=== PATIENT | female | born 1990 | race African-American/Black ===

== ENCOUNTER 2021-01-01 08:33 | Emergency (ER) | payer OTHER ==
[~2021-01-01] VITALS: Ht 170.2 cm; Wt 74.0 kg
[2021-01-01] MEDS ORDERED: IV NORMAL SALINE 1,000ML 1,000 ML IV ONE (08:45)
--- NOTE | 2021-01-01 08:53 | PHYS DOC ---
Adult General HPI HPI Patient is a 30-year-old female presenting via EMS for dizziness. Reports she was taking a diagnostic AC FT with the when she started getting lightheaded and dizzy during the 2-minute plank test. Reports she lowered herself to the ground and just stayed there because she was lightheaded and "felt like I went too hard". Reports history of G6PD; otherwise, no other pertinent medical issues. No history of passing out during physical exertion, no family history of early cardiac disease or other abnormalities. No fever, recent illness, sick contacts, travel or current chest pain, shortness of breath, abdominal pain, urinary symptoms or changes in motor or sensory or neuro function Review of Systems Review of Systems Fourteen body systems of review of systems have been reviewed. See HPI for pertinent positives and negative responses, other marie all other systems are negative, non-pertinent or non-contributory Physical Exam Physical Exam Constitutional: Well developed, well nourished, no acute distress, non-toxic appearance. HENT: Normocephalic, atraumatic, bilateral external ears normal, oropharynx dry, no oral exudates, nose normal. Eyes: PERRLA, EOMI, conjunctiva normal, no discharge. Neck: Normal range of motion, no tenderness, supple, no stridor. Cardiovascular: Heart rate regular, sinus rhythm, no murmurs rubs or gallops Lungs & Thorax: Bilateral breath sounds clear to auscultation Abdomen: Bowel sounds normal, soft, no tenderness, no masses, no pulsatile masses. Nonsurgical abdomen, no peritoneal signs Skin: Warm, dry, no erythema, no rash. Back: No tenderness, no CVA tenderness. Extremities: No tenderness, no cyanosis, no clubbing, ROM intact, no edema. Neurologic: Alert and oriented X 3, cranial nerves II through XII intact, normal motor & sensory function, no focal deficits noted. Psychologic: Affect normal, judgement normal, mood normal. Current Patient Data Vital Signs Vital Signs Date Time Temp Pulse Resp B/P (MAP) Pulse Ox O2 Delivery O2 Flow Rate FiO2 01/01/21 08:40 98.4 87 18 112/74 (87) 100 Room Air Vital Signs Date Time Temp Pulse Resp B/P (MAP) Pulse Ox O2 Delivery O2 Flow Rate FiO2 01/01/21 09:12 90 18 147/53 (84) 100 Room Air 01/01/21 08:40 98.4 Lab Results Laboratory Tests Test 01/01/21 08:50 01/01/21 09:04 01/01/21 09:18 White Blood Count 6.4 x10^3/uL Red Blood Count 3.72 x10^6/uL Hemoglobin 11.7 g/dL Hematocrit 35.9 % Mean Corpuscular Volume 96 fL Mean Corpuscular Hemoglobin 32 pg Mean Corpuscular Hemoglobin Concent 33 g/dL Red Cell Distribution Width 12.8 % Platelet Count 254 x10^3/uL Neutrophils (%) (Auto) 76 % Lymphocytes (%) (Auto) 15 % Monocytes (%) (Auto) 8 % Eosinophils (%) (Auto) 0 % Basophils (%) (Auto) 1 % Neutrophils # (Auto) 4.8 x10^3uL Lymphocytes # (Auto) 0.9 x10^3/uL Monocytes # (Auto) 0.5 x10^3/uL Eosinophils # (Auto) 0.0 x10^3/uL Basophils # (Auto) 0.0 x10^3/uL Sodium Level 143 mmol/L Potassium Level 4.1 mmol/L Chloride Level 106 mmol/L Carbon Dioxide Level 24 mmol/L Anion Gap 13 Blood Urea Nitrogen 12 mg/dL Creatinine 1.0 mg/dL Estimated GFR (Cockcroft-Gault) 64.7 Glucose Level 99 mg/dL Calcium Level 9.1 mg/dL Creatine Kinase 106 U/L Urine Collection Type Unknown Urine Color Sara Urine Clarity Hazy Urine pH 5.5 Urine Specific [place] >=1.030 Urine Protein 100 mg/dl Urine Glucose (UA) Neg mg/dL Urine Ketones (Stick) 15 mg/dL Urine Blood Neg Urine Nitrite Neg Urine Bilirubin Mod Urine Urobilinogen Dipstick 1.0 mg/dL Urine Leukocyte Esterase Neg Urine RBC 0 /HPF Urine WBC 0 /HPF Urine Squamous Epithelial Cells Few /LPF Urine Bacteria Few /HPF Urine Mucus Slight /LPF Bedside Urine HCG, Qualitative hcg negative Current Medications Medications (Trade) Dose Ordered Sig/Eva Route PRN Reason Start Time Stop Time Status Last Admin Dose Admin Sodium Chloride 1,000 ml @ 1,000 mls/hr 1X ONCE IV 01/01/21 08:45 01/01/21 09:44 DC 01/01/21 08:52 EKG EKG EKG ordered and interpreted by myself at 0852 hrs. as sinus rhythm at 84 bpm, unremarkable intervals, no axis deviation, no obvious ischemic findings, no STEMI Radiology/Procedures Radiology/Procedures [] Heart Score C/O Chest Pain: No HEART Score for Chest Pain: HEART Score for Chest Pain Response (Comments) Value History Slighlty/Non-Suspicious 0 ECG Normal 0 Age < 45 0 Risk Factors No Risk Factors 0 Total 0 Risk Factors: Risk Factors: DM, Current or recent (<one month) smoker, HTN, HLP, family history of CAD, obesity. Risk Scores: Risk Factors: DM, Current or recent (<one month) smoker, HTN, HLP, family history of CAD, obesity. Course & Med Decision Making Course & Med Decision Making ABCs unremarkable. I disclosed entirety of ER findings and discussed most likely diagnosis of dehydration versus dizziness from physical exertion. I discussed there were no emergent or surgical findings. I disclose this is low likelihood cardiac or other life-threatening process. Patient asymptomatic on arrival, tolerated IV fluid rehydration and remained asymptomatic throughout ER visit. She was ambulatory and felt at baseline self prior to requesting discharge home. As such, I stressed need for close outpatient follow-up to review today's ER visit. Strict return precautions were also discussed at length with good understanding by patient. Patient voiced understanding and agreement with the plan. Patient knows to come back for repeat evaluation if concerning signs or symptoms present prior to outpatient follow-up. Hemodynamically stable, ambulatory and well-appearing at time of disposition. Dragon Disclaimer Dragon Disclaimer This electronic medical record was generated, in whole or in part, using a voice recognition dictation system. Departure Departure: Impression: Primary Impression: Dehydration after exertion Additional Impression: Excessive physical exertion from prolonged activity Disposition: 01 HOME / SELF CARE / HOMELESS Condition: STABLE Additional Instructions: As discussed prior to ER departure, your vital signs, physical exam and comprehensive ER work-up was nonconcerning for any emergent or surgical issues. As disclose, your condition was likely caused by excessive physical activity in combination with dehydration. There is low likelihood of other more concerning emergent and/or surgical processes being the cause. As such, it is pertinent you contact your primary care provider immediately after ER departure to review ER visit today. If any concerning signs or symptoms present prior to outpatient follow-up please do not hesitate to come back for repeat evaluation. It was a pleasure to take care of you and I wish you the best going forward Problem Qualifiers DEEPTI PRADHAN DO Jan 01, 2021 08:53
[2021-01-01 09:29] LABS: BASO % 1 % (0-3); EOS % 0 % (0-3); HEMATOCRIT 35.9 % (36.0-47.0); HEMOGLOBIN 11.7 g/dL (12.0-15.5); LYMPH # 0.9 x10^3/uL (1.0-4.8); LYMPH % 15 % (24-48); MEAN CORPUSCULAR HEMOGLOBIN 32 pg (25-35); MEAN CORPUSCULAR HGB CONC 33 g/dL (31-37); MEAN CORPUSCULAR VOLUME 96 fL (79-100); MONO # 0.5 x10^3/uL (0.0-1.1); MONO % 8 % (0-9); NEUT # 4.8 x10^3uL (1.8-7.7); NEUT % 76 % (31-73); PLATELET COUNT 254 x10^3/uL (140-400); RED BLOOD COUNT 3.72 x10^6/uL (3.50-5.40); RED CELL DISTRIBUTION WIDTH 12.8 % (11.5-14.5); WHITE BLOOD COUNT 6.4 x10^3/uL (4.0-11.0)
[2021-01-01 09:39] LABS: CALCIUM 9.1 mg/dL (8.5-10.1); GFR 64.7; POTASSIUM 4.1 mmol/L (3.5-5.1)
[2021-01-01 09:52] LABS: BILIRUBIN,URINE MOD (NEG); CLARITY,URINE HAZY; COLOR,URINE AMBER; GLUCOSE,URINE NEG (NEG); NITRITE,URINE NEG (NEG)
[2021-01-01 09:53] LABS: BACTERIA,URINE FEW /HPF (0-FEW); RBC,URINE 0 /HPF (0-2); SQUAMOUS EPITHELIAL CELL,UR FEW /LPF; WBC,URINE 0 /HPF (0-4)
[2021-01-01 10:25] VITALS: BP 111/60
--- NOTE | 2021-01-02 21:53 | EKG ---
[address] [address] Test Date: 2021-01-01 Test Time: 08:42:48 Pat Name: ROMARIO URIBE Department: Room: Gender: F [employer] Sales Representative: RAHUL : 1990 Requested By: DEEPTI PRADHAN Order Number: [id number] Reading MD: Measurements Intervals [place] Rate: 84 P: 58 KS: 164 QRS: 64 QRSD: 78 T: 68 QT: 344 QTc: 410 Interpretive Statements SINUS RHYTHM NORMAL ECG RI6.02 No previous ECG available for comparison
== END 2021-01-01 10:28 | disposition home or self-care (01) ==
LOC: ER 08:33
DX: R42 Dizziness and giddiness (principal); E86.0 Dehydration
CPT/HCPCS: 36415; 80048; 81001; 81025; 82550; 85025; 93005; 96360; 99284; J7030